=== PATIENT | female | born 1955 | race Caucasian/White ===

== ENCOUNTER 2016-11-21 09:47 | Outpatient (CLI) | payer OTHER ==
--- NOTE | 2016-11-21 12:47 | DIAGNOSTIC IMAGING REPORT ---
PROCEDURE: CT LOW-DOSE LUNG CA SCREENING CLINICAL INDICATION: Screening. Current smoker, between 20 and 40 pack years, family history of lung cancer, exposure to secondhand smoke, and chronic cough and shortness of breath. TECHNIQUE: Low-dose helical CT images of the lungs without contrast were obtained and reconstructed at 2.5 mm slice thickness. MIP reformations in coronal and sagittal planes were created. Radiation dose 1.37 mGy. COMPARISON: Oldest available comparison: None, correlation made to CT abdomen pelvis 08/08/2015 FINDINGS: NODULES: 1. Location: Subpleural lateral right upper lobe image location: 102, 28 size: 4 mm composition: Ground-glass 2. Location: Subpleural anterolateral left upper lobe image location: 102, 32 size: 5 mm composition: Part solid 3. Location: Subpleural lateral left lower lobe image location: 102, 87 size: 6.5 mm composition: Part solid 4. Location: Pleural-based superior segment left lower lobe image location: 102, 62 size: 3 mm composition: Ground-glass 5. Location: The right major fissure image location: 102, 67/602, 41 size: 6.6 mm composition: Ground-glass OTHER LUNG FINDINGS: Moderate central lobular and paraseptal upper lobe emphysematous changes. Mild lingular atelectatic changes. AIRWAY: Branches normally without narrowing or endobronchial nodule. PLEURA: No effusions, thickening, or pneumothorax. AORTA AND GREAT VESSELS: Normal caliber, mild atherosclerotic calcification. PULMONARY ARTERIES: Normal. . HEART AND PERICARDIUM: Normal size without effusion, thickening. Moderate coronary artery calcification. LYMPH NODES: No enlarged nodes visible. Multiple minimally prominent central mediastinal lymph nodes, nonspecific. THORACIC SPINE: No suspicious lesion. Schmorl's node formation and superior endplates of the lower thoracic spine. CHEST WALL: Normal. VISUALIZED UPPER ABDOMEN: Normal. Partially imaged 2.6 cm left adrenal lesion. 2.5 cm right adrenal lesion. IMPRESSION: 1. 6.5 mm part solid, subpleural, left lateral lower lobe lung nodule, and at least three other lung nodules are present. The right major fissure nodule is probably lymph node. Given size criteria, the left lower lobe lung nodule is probably benign, however 6-month follow-up low-dose chest CT is recommended. This nodule has slightly grown since the previous study (previously 5 mm). 2. Emphysema. 3. Bilateral adrenal lesions, partially imaged. Grossly stable in size compared to the prior study where the appearance is consistent with adenoma. 4. Lung RADS category three, followup low-dose chest CT in [address] scans at this facility use dose modulation, iterative reconstruction, and/or weight-based dosing when appropriate to reduce radiation dose to as low as reasonably achievable.
== END 2016-11-21 23:00 ==
LOC: CT SRH 09:47
DX: R05 Cough (principal); R91.1 Solitary pulmonary nodule; J43.9 Emphysema, unspecified; E27.9 Disorder of adrenal gland, unspecified; F17.200 Nicotine dependence, unspecified, uncomplicated; Z85.118 Personal history of other malignant neoplasm of bronchus and lung

== ENCOUNTER 2016-11-26 12:09 | Outpatient (CLI) | payer OTHER ==
--- NOTE | 2016-11-26 14:54 | DIAGNOSTIC IMAGING REPORT ---
PROCEDURE: US KIDNEY/RENAL COMPLETE INDICATION: PELVIC PAIN,RECURRENT UTI TECHNIQUE: Transabdominal scans of the kidneys with calculation of resistive indices. Prevoid and postvoid bladder volumes were obtained. COMPARISON: CT abdomen/pelvis 08/08/2015. FINDINGS: RIGHT: Kidney measures 12 x 5.1 x 4.5 cm. Cortex measures 1.2 cm. No calculi or hydronephrosis. Resistive indices measure 0.64 or less, normal. LEFT: Measures 12.3 x 5.7 x 5.9 cm. Cortex measures 1.4 cm. No calculi or hydronephrosis. Normal resistive indices measure 0.68 or less, normal. BLADDER: Bilateral ureteral jets visualized. Bladder has a normal appearance. Prevoid bladder volume 295 ml, postvoid volume 20 ml. IMPRESSION: 1. 20 ml postvoid residual bladder volume 2. Normal kidneys.
--- NOTE | 2016-11-26 15:08 | DIAGNOSTIC IMAGING REPORT ---
PROCEDURE: US COMPLETE PELVIC W/TRANSVAG INDICATION: PELVIC PAIN,RECURRENT UTI TECHNIQUE: Transabdominal and endovaginal ventura scale and color Doppler sonographic images of the female pelvis were obtained. COMPARISON: CT abdomen/pelvis 08/08/2015. FINDINGS: TRANSABDOMINAL SCANS: No pelvic mass. TRANSVAGINAL SCANS: Anteflexed uterus measures 4.5 x 4.6 x 2.6 cm. Endometrium measures 4 mm with some cystic components. Ovaries not visualized. No evidence of adnexal mass or free fluid the cul-de-sac. IMPRESSION: 1. Atrophic uterus 2. Ovaries not visualized.
== END 2016-11-26 23:00 ==
LOC: US SRH 12:09
DX: R10.2 Pelvic and perineal pain (principal); N85.8 Other specified noninflammatory disorders of uterus